=== PATIENT | female | born 1980 | race Caucasian/White ===

== ENCOUNTER 2017-04-05 03:18 | Emergency (ER) | payer BC ==
[~2017-04-05] VITALS: Ht 162.6 cm; Wt 88.2 kg
[~2017-04-05 03:18] MED LIST: ALBUAER2 INH
[2017-04-05 03:24] VITALS: TEMP 36.8; Ht 162.6 cm; Wt 88.2 kg
[2017-04-05] MEDS ORDERED: KETOROLAC TROMETHAMINE 60 MG/2 ML VIAL IM STA (03:35)
[2017-04-05] MEDS ORDERED: OXYC1TAB3 PO (03:38)
[2017-04-05] MEDS ORDERED: BACL1TAB PO (03:38)
[2017-04-05] MEDS ORDERED: BACLOFEN 10 MG TAB PO ONE (03:45)
[2017-04-05] MEDS ORDERED: OXYCODONE IR HOME PACK PO ONE (03:45)
[2017-04-05 03:56] VITALS: BP 120/83; PULSE 81; O2SAT 97
--- NOTE | 2017-04-05 03:56 | EMERGENCY ROOM VISIT NOTE ---
History First contact with patient: 03:26 Chief Complaint: BACK PAIN Stated Complaint: PULLED BACK History of Present Illness The patient is a 36 year old female who presents to the Emergency Room with complaints of ongoing right upper back pain for the past several months who's tried the chiropractor, anti-inflammatories, muscle cream with no improvement of symptoms. 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 Pain described as aching. Pain currently 8 out of 10. Worse with movement and better with rest. It does not radiate. Patient denies chest pain, dyspnea, numbness, tingling, weakness, IV drug abuse, fevers, chills , trauma. Patient has not seen a back doctor for her ongoing back issues. Review of Systems See HPI for pertinent positives & negatives. A total of 10 systems reviewed and were otherwise negative. Past Medical/Surgical History Medical Problems: (1) Acute chest pain (2) Asthma (3) Elevated transaminase level (4) GERD (gastroesophageal reflux disease) (5) Gestational diabetes mellitus (6) Vaginal delivery Surgical Problems: (1) History of cholecystectomy Family History Diabetes mellitus Hypertension Kidney stones Social History Smoking Status: Current Every Day Smoker Alcohol Use: none Marital Status: Housing Status: lives with family Occupation Status: employed Current/Historical Medications Scheduled Baclofen (Lioresal), 10 MG PO TID Scheduled PRN Albuterol (Ventolin), 2 PUFFS INH QID PRN for SOB/Wheezing Oxycodone Immediate Rel Tab (Roxicodone Ir), 1-2 TAB PO Q4H PRN for Severe Pain Physical Exam Vital Signs Date Time Temp Pulse Resp B/P (MAP) Pulse Ox O2 Delivery O2 Flow Rate FiO2 04/05/17 03:24 36.8 96 20 117/82 97 Room Air Physical Exam VITALS: Vitals are noted on the nurse's note and reviewed by myself. Vital signs stable. GENERAL: Pleasant female, in no acute distress, nondiaphoretic, well-developed well-nourished. SKIN: Capillary reflex less than 2 seconds. HEENT: Normocephalic. PERRLA. EOMI. Nares patent. Mucous membranes moist. Neck is supple without nuchal rigidity. HEART: Regular rate and rhythm without murmurs gallops or rubs. LUNGS: Clear to auscultation bilaterally without wheezes, rales or rhonchi. No retractions or accessory muscle use. ABDOMEN: Positive bowel sounds x 4. Normal tympanic percussion. Soft, nontender, without masses or organomegaly. Redd sign negative. No guarding or rebound tenderness. MUSCULOSKELETAL: No gross musculoskeletal defects. No thoracic or lumbar tenderness on exam, right upper thoracic region tender to palpation easily reproducing symptoms, no rashes, patient can ambulate without difficulties. 5 out of 5 strength throughout. NEURO: Patient was alert and oriented to person place and time. Normal sensation to light and sharp touch. No focal neurological deficits. Medical Decision & Procedures Medications Administered Medications (Trade) Dose Ordered Sig/Emmanuelle Route Start Time Stop Time Status Last Admin Dose Admin Ketorolac Tromethamine (Toradol Inj) 60 mg NOW STAT IM 04/05/17 03:35 04/05/17 03:36 DC 04/05/17 03:46 60 MG Baclofen (Lioresal Tab) 10 mg ONE ONCE PO 04/05/17 03:45 04/05/17 03:46 DC 04/05/17 03:45 10 MG ED Course Prior records/ancillary studies reviewed. Triage Nursing notes reviewed. The patient's history was concerning for back pain. Differential diagnosis: Etiologies such as musculoskeletal, disc herniation, fracture, aortic disease, metastatic disease, cord compression, discitis, infection, renal colic, gastrointestinal, acute exacerbation of chronic back pain, sciatica, cauda equina, as well as others were entertained. Physical findings: As above. No focal neurologic findings noted. ER treatment provided: Toradol, baclofen, home pack of OxyIR On reassessment the patient felt better. Diagnostics interpreted by me: Deferred This appears to be consistent with thoracic strain. Patient was neurovascularly neurologic intact. She is well-appearing. No trauma. No deficits. She is advised to follow-up with orthopedic spine for ongoing issues or here in the ER sooner for severe pain, numbness, tingling, inability to walk , worsening signs or symptoms or as needed.. The patient's physical examination and detailed history did not reveal any red flags for back pain such as those listed in the differential diagnosis. Therefore advanced diagnostics and consultations were felt to be unwarranted. By the evaluation outlined above emergent etiologies such as fracture, aortic disease, metastatic disease, infection, renal colic, gastrointestinal, cord compression, cauda equina, as well as others were deemed relatively unlikely. The pt informed about the findings as listed above. All questions were answered and pleased with the treatment. Return instructions were outlined and the patient was discharged in stable condition. Outpatient prescription management: Baclofen Oxy IR 5mg 1-2 po Q4 hrs prn Referral: The patient was referred back to orthopedic spine and/or primary care physician for follow-up in 2 to 3 days for a recheck of the current condition. Medical Decision As above [place] Drug Monitoring Program Search Results: patient reviewed within database, no issues identified Medication Reconcilliation Current Medication List: was personally reviewed by mt Blood Pressure Screening Patient's blood pressure: Normal blood pressure Impression Primary Impression: Thoracic myofascial strain Departure Information Dispostion Home / Self-Care Condition GOOD Prescriptions Oxycodone Immediate Rel Tab (ROXICODONE IR) 5 Mg Tab 1-2 TAB PO Q4H Y for Severe Pain, #10 TAB Prov: Donna Domingo .JAKE 04/05/17 Baclofen (LIORESAL) 10 Mg Tab 10 MG PO TID, #20 TAB Prov: Donna Domingo PA-C 04/05/17 Referrals Froylan Anderson, DO Forms HOME CARE DOCUMENTATION FORM, Work Instructions, Return To Work: 2 days IMPORTANT VISIT INFORMATION Patient Instructions Back Pain - [facility], [facility] Additional Instructions Baclofen 10 m tablet every 8 hours as needed for muscle tightness. Oxycodone (OxyIR) 5mg: Take 1-2 pills every four hours for breakthrough pain. Avoid alcohol, operating machinery or dangerous equipment, working on ladders or roofs, DRIVING, or situations where being under the influence may be dangerous. It is recommended to use an vnen-iij-eoibalb stool softener such as Colace, 100mg twice daily while taking this medication to avoid constipation. Ibuprofen(Motrin, Advil) may be used for fever or pain. Use 600mg every six hours as needed. Take with food. Avoid using more than 2400mg in a 24 hour period. Do not use 2400mg per day for more than three consecutive days without physician direction. Prolonged inappropriate use can lead to stomach upset or ulcers. This medication can be taken if you need to drive, work, or perform activities which may be dangerous when taking narcotic pain medication. (AND/OR) Acetaminophen(Tylenol) may be used for fever or pain. Use 1000mg every six hours as needed. Avoid using more than 3000mg in a 24 hour period. This medication can be taken if you need to drive, work, or perform activities which may be dangerous when taking narcotic pain medication. Rest and avoid heavy lifting until your symptoms resolve and then gradually return to full activity. A good rule of thumb is if it hurts your back to perform a certain activity, then it should be avoided until you are healthy again. A heating pad, warm compresses, or a hot shower may help with tight muscles and can be done several times a day as needed. Continue current medications. Return to the ER immediately for any numbness, tingling, severe pain, loss of control of your bowels or bladder, inability to walk, or as needed. Follow up with your primary care physician/orthopedics spine within 3-5 days for a recheck of your current condition. Work Instructions Return To Work: 2 days Problem Qualifiers Primary Impression: Thoracic myofascial strain Encounter type: initial encounter Qualified Codes: S29.019A - Strain of muscle and tendon of unspecified wall of thorax, initial encounter
[2017-04-05] MEDS ORDERED: VNTHFA/IN INH (03:57)
== END 2017-04-05 03:58 | disposition home or self-care (01) ==
LOC: C.EDB 03:19 → C.EDA 03:58
DX: S29.012A Strain of muscle and tendon of back wall of thorax, initial encounter (principal); X58.XXXA Exposure to other specified factors, initial encounter; J45.909 Unspecified asthma, uncomplicated; K21.9 Gastro-esophageal reflux disease without esophagitis; F17.200 Nicotine dependence, unspecified, uncomplicated; Z90.49 Acquired absence of other specified parts of digestive tract; Z79.899 Other long term (current) drug therapy; Z83.3 Family history of diabetes mellitus; Z82.49 Family history of ischemic heart disease and other diseases of the circulatory system; Z84.1 Family history of disorders of kidney and ureter